=== PATIENT | male | born 1960 | race Caucasian/White ===

== ENCOUNTER 2016-11-25 16:56 | Emergency (ER) | payer OTHER ==
[~2016-11-25] VITALS: Ht 185.4 cm; Wt 118.0 kg
[~2016-11-25 16:56] MED LIST: ASPI81 PO; B COTAB3 PO; HYDR12.56; OTC POTASSIUM; OXYC-360 PO; ROSU10; TAB-TAB PO
[2016-11-25 17:00] VITALS: BP 172/99; PULSE 68; RESP 17; TEMP 98.3; O2SAT 98
[2016-11-25] MEDS ORDERED: DILT-64 PO (17:48)
[2016-11-25] MEDS ORDERED: FURO20TA PO (17:48)
[2016-11-25] MEDS ORDERED: MELO-1 PO (17:48)
[2016-11-25] MEDS ORDERED: OMEP20TA PO (17:48)
[2016-11-25] MEDS ORDERED: CYCL1TAB29 PO (17:48)
[2016-11-25] MEDS ORDERED: TRAM50TA PO (17:48)
--- NOTE | 2016-11-25 17:58 | PD ---
HPI Chief Complaint: Skin Problem Time Seen by Provider: 17:52 Travel History International Travel<30 days: No Contact w/Intl Traveler<30days: No Traveled to known affect area: No History of Present Illness HPI 56-year-old male presents to the emergency room for evaluation of a painful abscess to his lower back that has been present for the past 3 days. Patient states he has had a cyst there for 6 months and occasionally enlarges but 3 days ago it got the size of a golf ball. It began spontaneously draining last night and shrank in size but he has worsening pain. He has not taken anything or done anything for his pain. Unknown last tetanus. Denies fever, chills, nausea, and vomiting. PFSH Past Medical History Heart Rhythm Problems: Yes (HX OF A FIB) High Cholesterol: Yes Diminished Hearing: No Medical other: Yes (neuropathy) Tetanus Vaccination: < 5 Years Influenza Vaccination: No ?: Not Past Surgical History Other Surgery: Yes (VASECTOMY, LEFT FOOT SURG) Social History Alcohol Use: No Tobacco Use: Yes (3/4 PPD) Substance Use: No Allergies-Medications (Allergen,Severity, Reaction): Coded Allergies: No Known Allergies (Verified , 11/25/16) Reported Meds & Prescriptions Reported Meds & Active Scripts Active Bactrim DS (Sulfamethoxazole-Trimethoprim) 800-160 Mg Tab 1 Tab PO BID Reported Furosemide 20 Mg Tab 20 Mg PO BID Omeprazole 20 Mg Tab 20 Mg PO DAILY Diltiazem CD 24 HR 240 Mg Caper 240 Mg PO DAILY Flexeril (Cyclobenzaprine HCl) 10 Mg Tab 10 Mg PO TID Tramadol (Tramadol HCl) 50 Mg Tab 50 Mg PO Q6H PRN Meloxicam 15 Mg Tab 15 Mg PO DAILY B Complex (Vitamin B Complex) Tab 1 Cap PO DAILY Multivitamin (Multivitamins) 1 Tab Tab 1 Tab PO DAILY Review of Systems Except as stated in HPI: all other systems reviewed are Neg Physical Exam Narrative GENERAL: Well-nourished, well-developed male in no acute distress. Afebrile. Ambulatory. SKIN: Focused skin assessment warm/dry. There is an indurated area in the mid lower back which measures about 3 cm in diameter. It is fluctuant but there is no pointing or drainage. There is a zone of inflammation around it but no lymphangitis. HEAD: Normocephalic. EYES: No scleral icterus. No injection or drainage. NECK: Supple, trachea midline. No JVD or lymphadenopathy. CARDIOVASCULAR: Regular rate and rhythm without murmurs, gallops, or rubs. RESPIRATORY: Breath sounds equal bilaterally. No accessory muscle use. PSYCHIATRIC: No delusional thought processes. No hallucinations. Data Data Last Documented VS Vital Signs Date Time Temp Pulse Resp B/P Pulse Ox O2 Delivery O2 Flow Rate FiO2 11/25/16 17:00 98.3 68 17 172/99 98 Orders Lidocai-Epi 1%-1:100,000 Inj (Xylocaine- (11/25/16 18:00) Tetanus/Diphtheria Tox Adult (Tetanus/Di (11/25/16 18:00) Wound Culture And Gram Stain (11/25/16 17:51) MDM Medical Decision Making Medical Screen Exam Complete: Yes Emergency Medical Condition: Yes Medical Record Reviewed: Yes Differential Diagnosis Abscess versus cellulitis versus sebaceous cyst Narrative Course 56-year-old male presents to the emergency room for evaluation of an abscess to his lower back that started 3 days ago. It started off as a sebaceous 6 months ago and occasionally gets infected. It began spontaneously draining last night. No systemic signs of infection. Vital signs stable. Physical exam reveals a 3 cm abscess in the lower back. No lymphangitis. Mild tenderness to palpation. Abscess was drained, see procedure note for details. Patient discharged with Bactrim and told to follow up with a primary care physician or return to the emergency room for worsening symptoms. He understands and agrees to this plan. Procedures Procedure Narrative INCISION AND DRAINAGE OF ABSCESS: The area was prepped and was sterilely draped. A subcutaneous wheal of 1% lidocaine with epinephrine with a total number 2 mL was used to anesthetize the area properly. A number 11 scalpel was used to make a 1 cm incision across the area of the abscess. The abscess was drained, complex loculations were broken down, and irrigated with normal saline. Cultures were obtained. Sterile dressing applied. Diagnosis Primary Impression: Abscess of lower back Referrals: Primary Care Physician Patient Instructions: Abscess (ED), General Instructions Additional Instructions: Rest and drink plenty of fluids. Take Bactrim as directed, until gone. Follow up with a primary care physician. Return to emergency room for worsening symptoms, as discussed. Med/Other Pt SpecificInfo: Prescription(s) given Scripts Sulfamethoxazole-Trimethoprim (Bactrim DS)800-160 Mg Tab1 Tab PO BID #20 TAB Ref 0 Prov:Christina Wasserman DO 11/25/16 Disposition: 01 DISCHARGE HOME Condition: Stable Brigida Birch November 25, 2016 17:58
[2016-11-25] MEDS ORDERED: LIDOCAINE 1%/EPINEPHrine 1:100,000 SOLN 20 ML VIAL INFIL ONE (18:00)
[2016-11-25] MEDS ORDERED: TETANUS/DIPHTHERIA TOXOID ADULT 0.5 ML VIAL IM ONE (18:00)
[2016-11-25] MEDS ORDERED: BACT800T5 PO (18:22)
== END 2016-11-25 18:25 | disposition home or self-care (01) ==
LOC: PHED 16:56 → PHEFT 18:25
DX: L02.212 Cutaneous abscess of back [any part, except buttock and flank] (principal); A49.9 Bacterial infection, unspecified; I48.91 Unspecified atrial fibrillation; E78.00 Pure hypercholesterolemia, unspecified; F17.210 Nicotine dependence, cigarettes, uncomplicated; Z23 Encounter for immunization
CPT/HCPCS: 10061; 87070; 87185; 87205; 90471; 90714

== ENCOUNTER 2018-01-12 20:50 | Emergency (ER) | payer OTHER ==
[~2018-01-12] VITALS: Ht 188 cm; Wt 101.0 kg
[~2018-01-12 20:50] MED LIST changes: -ASPI81 PO; +BACT800T5 PO; +CYCL10TA PO; +DILT240C44 PO; +FURO20TA PO; -HYDR12.56; +MELO15TA20 PO; +OMEP20TA93 PO; -OTC POTASSIUM; -OXYC-360 PO; -ROSU10; +TRAM50TA PO
[2018-01-12 21:01] VITALS: BP 167/86; PULSE 65; RESP 18; TEMP 98.6; O2SAT 98
[2018-01-12] MEDS ORDERED: TETANUS/DIPHTHERIA TOXOID ADULT 0.5 ML VIAL IM ONE (21:30)
[2018-01-12] MEDS ORDERED: traMADol HCL 50 MG TAB PO ONE (21:30)
[2018-01-12] MEDS ORDERED: SULFAMETHOXAZOLE-TRIMETHOPRIM DS 800-160 MG TAB PO ONE (21:30)
[2018-01-12] MEDS ORDERED: CLINDAMYCIN PHOS 600 MG/4 ML VIAL IM ONE (21:30)
[2018-01-12] MEDS ORDERED: BACT800T5 PO (21:32)
[2018-01-12] MEDS ORDERED: CLIN150C14 PO (21:32)
[2018-01-12] MEDS ORDERED: TRAM50 PO (21:32)
--- NOTE | 2018-01-12 21:32 | PD ---
HPI Chief Complaint: Lump, Cyst, Hernia Time Seen by Provider: 21:18 Travel History International Travel<30 days: No Contact w/Intl Traveler<30days: No Traveled to known affect area: No History of Present Illness HPI 57-year-old male complains of painful lump on the right groin. Patient states that the pain started yesterday. Patient denies any injury to the area. Patient denies any fever chills. Patient states that he is not up-to-date with TD booster. Patient states the pain is sharp pain localized the right groin. Patient denies any pain radiation. Patient denies any dysuria or frequency. Patient denies any back pain. PFSH Past Medical History Heart Rhythm Problems: Yes (HX OF A FIB) High Cholesterol: Yes Diminished Hearing: No Immunizations Current: Yes Tetanus Vaccination: < 5 Years Influenza Vaccination: No Past Surgical History Other Surgery: Yes (VASECTOMY, LEFT FOOT SURG) Social History Alcohol Use: No Tobacco Use: Yes (/ PPD) Substance Use: No Allergies-Medications (Allergen,Severity, Reaction): Coded Allergies: No Known Allergies (Verified Adverse Reaction, Unknown, 01/12/18) Reported Meds & Prescriptions Reported Meds & Active Scripts Active Bactrim DS (Sulfamethoxazole-Trimethoprim) 800-160 Mg Tab 1 Tab PO BID Reported Furosemide 20 Mg Tab 20 Mg PO BID Omeprazole 20 Mg Tab 20 Mg PO DAILY Diltiazem CD 24 HR 240 Mg Caper 240 Mg PO DAILY Flexeril (Cyclobenzaprine HCl) 10 Mg Tab 10 Mg PO TID Tramadol (Tramadol HCl) 50 Mg Tab 50 Mg PO Q6H PRN Meloxicam 15 Mg Tab 15 Mg PO DAILY B Complex (Vitamin B Complex) Tab 1 Cap PO DAILY Multivitamin (Multivitamins) 1 Tab Tab 1 Tab PO DAILY Review of Systems General / Constitutional: No: Fever Eyes: No: Visual changes HENT: No: Headaches Cardiovascular: No: Chest Pain or Discomfort Respiratory: No: Shortness of Breath Gastrointestinal: No: Abdominal Pain Genitourinary: No: Dysuria Musculoskeletal: No: Pain Skin: No Rash Neurologic: No: Weakness Psychiatric: No: Depression Endocrine: No: Polydipsia Hematologic/Lymphatic: No: Easy Bruising Physical Exam Narrative GENERAL: Well-nourished, well-developed patient. SKIN: Focused skin assessment warm/dry. HEAD: Normocephalic. EYES: No scleral icterus. No injection or drainage. NECK: Supple, trachea midline. No JVD or lymphadenopathy. CARDIOVASCULAR: Regular rate and rhythm without murmurs, gallops, or rubs. RESPIRATORY: Breath sounds equal bilaterally. No accessory muscle use. GASTROINTESTINAL: Abdomen soft, non-tender, nondistended. MUSCULOSKELETAL: No cyanosis, or edema. BACK: Nontender without obvious deformity. No CVA tenderness. Patient has an area of redness swelling with small area of induration right inguinal area. No discharge noted. Data Data Last Documented VS Vital Signs Date Time Temp Pulse Resp B/P (MAP) Pulse Ox O2 Delivery O2 Flow Rate FiO2 01/12/18 21:01 98.6 65 18 167/86 (113) 98 Orders Orders Clindamycin Inj (Cleocin Inj) (01/12/18 21:30) Sulfamet-Trimeth Ds 800-160 Mg (Bactrim (01/12/18 21:30) Tramadol (Ultram) (01/12/18 21:30) [facility] Medical Decision Making Medical Screen Exam Complete: Yes Emergency Medical Condition: Yes Differential Diagnosis Differential diagnosis including cellulitis, abscess. Narrative Course 57-year-old male with pain swelling redness right inguinal area. Clindamycin 600 mg IM. Bactrim DS 1 tablet p.o. given. Ultram 50 mill grams p.o. given. Td booster given. Diagnosis Primary Impression: Abscess of right groin Patient Instructions: General Instructions Additional Instructions: Take medications as directed. Moist compress to the area. Return in 2 days for recheck. Med/Other Pt SpecificInfo: Prescription(s) given Scripts Tramadol (Ultram) 50 Mg Tab 50 MG PO Q6H Y for PAIN, #12 TAB 0 Refills Prov: Varghese Elaine MD 01/12/18 Sulfamethoxazole-Trimethoprim (Bactrim DS) 800-160 Mg Tab 1 TAB PO BID for Infection, #20 TAB 0 Refills Prov: Varghese Elaine MD 01/12/18 Clindamycin (Clindamycin) 150 Mg Cap 300 MG PO QID for Infection, #80 CAP 0 Refills Prov: Varghese Elaine MD 01/12/18 Disposition: 01 DISCHARGE HOME Condition: Stable Varghese Elaine MD Jan 12, 2018 21:32
--- NOTE | 2018-01-12 21:39 | PD ---
Physical Exam Date Seen by Provider: Jan 12, 2018 Time Seen by Provider: 21:37 Narrative Skin: Patient has a 3 x 3 cm abscess in the right groin Data Data Last Documented VS Vital Signs Date Time Temp Pulse Resp B/P (MAP) Pulse Ox O2 Delivery O2 Flow Rate FiO2 01/12/18 21:01 98.6 65 18 167/86 (113) 98 Orders Orders Clindamycin Inj (Cleocin Inj) (01/12/18 21:30) Sulfamet-Trimeth Ds 800-160 Mg (Bactrim (01/12/18 21:30) Tramadol (Ultram) (01/12/18 21:30) Tetanus/Diphtheria Tox Adult (Tetanus/Di (01/12/18 21:30) Ed Discharge Order (01/12/18 21:36) MDM Medical Record Reviewed: Yes Supervised Visit with ANJALI: Yes Differential Diagnosis MDM: High Differential diagnoses: Abscess, folliculitis, cellulitis, lymphangitis, abrasion, contact dermatitis Narrative Course An incision and drainage has been performed. Patient given clindamycin. Procedures Procedure Narrative I&D abscess: After the risks and benefits were discussed the following procedure was performed. The skin is prepped and draped in the usual sterile fashion using Hibiclens. The abscess is anesthetized with 1% lidocaine with epinephrine. After adequate anesthesia, an 11 blade scalpel is used to make a 2 centimeter central incision. Perulant material is expressed . Loculations are broken up using curved Cristy forceps. The wound is cleansed deeply using dilute Hibiclens and saline on Q-tips. The wound is packed open using iodoform gauze. A clean dressing is applied. The patient tolerated the procedure well. There was no complications. Follow-up instructions were given to the patient. Diagnosis Primary Impression: Abscess of right groin Patient Instructions: General Instructions Additional Instruction: Rest. Elevation. keep clean and dry. remove the packing in 2-3 days. Daily wound care with soap, water and Neosporin. Three Advil every 6 hours. Medications as directed Follow-up with a primary care doctor in one week. Return to the ER for any problems. Med/Other Pt SpecificInfo: Prescription(s) given, Wound Care Scripts Tramadol (Ultram) 50 Mg Tab 50 MG PO Q6H Y for PAIN, #12 TAB 0 Refills Prov: Chele,Hung MD 01/12/18 Sulfamethoxazole-Trimethoprim (Bactrim DS) 800-160 Mg Tab 1 TAB PO BID for Infection, #20 TAB 0 Refills Prov: Varghese Elaine MD 01/12/18 Clindamycin (Clindamycin) 150 Mg Cap 300 MG PO QID for Infection, #80 CAP 0 Refills Prov: Varghese Elaine MD 01/12/18 Disposition: 01 DISCHARGE HOME Condition: Stable Shan Echavarria Jan 12, 2018 21:39
== END 2018-01-12 22:07 | disposition home or self-care (01) ==
LOC: NEPD 20:50
DX: L02.214 Cutaneous abscess of groin (principal); Z23 Encounter for immunization; I48.91 Unspecified atrial fibrillation; E78.00 Pure hypercholesterolemia, unspecified; F17.200 Nicotine dependence, unspecified, uncomplicated
CPT/HCPCS: 10060; 90471; 90714; 96372

== ENCOUNTER 2018-06-24 08:58 | Observation (INO) ==
[2018-06-24] MEDS ORDERED: Morphine Inj 4 MG/ML Vial IV.PUSH ONE ×2 (09:10→10:53)
--- NOTE | 2018-06-24 09:25 | ED ---
HPI General Chief complaint: Chest Pain Stated complaint: chest pain Time Seen by Provider: 06/24/18 09:07 History of Present Illness HPI narrative: 58-year-old male with past medical history of A. fib not on anticoagulation or rate control presents to the ED today for substernal chest pain radiating to the left arm and neck for 3 hours. Patient denies any shortness of breath, nausea, vomiting, diaphoresis, or syncope. Patient was under significant stress at work when pain began. His coworker gave him a baby aspirin on onset of pain. Patient denies any recent illness trauma or travel. Patient denies any previous episodes. Patient reports family history of cardiac disease mother. Patient smokes half pack a day and drinks socially. Related Data Home Medications Medication Instructions Recorded Confirmed aspirin [Aspir-81] 81 mg PO DAILY 06/24/18 06/24/18 bupropion HCl 150 mg PO QAM 06/24/18 06/24/18 omeprazole 20 mg PO DAILY 06/24/18 06/24/18 Allergies Allergy/AdvReac Type Severity Reaction Status Date / Time No Known Allergies AdvReac Unknown Uncoded 01/15/18 20:44 Review of Systems Constitutional Denies chills and Denies fever(s) ENT Denies headache(s) and Reports neck pain Cardiovascular Reports chest pain, Denies syncope, Reports radiating jaw, neck or arm pain, Denies palpitations and Denies dyspnea Respiratory Denies cough, Denies dyspnea and Denies wheezing Gastrointestinal Denies diarrhea, Denies nausea and Denies vomiting Genitourinary Denies urinary frequency and Denies urinary urgency Musculoskeletal Reports neck pain and Reports radiating pain into limb Integumentary/Breasts Denies rash Neurologic Denies dizziness, Denies syncope, Denies numbness and Reports tingling PMFSH Medical History Medical History Afib (Acute) Chronic back pain (Acute) Surgical History Surgical History H/O vasectomy (Acute) Social History Social History Substance History: No History of Abuse Second Hand Smoke Exposure: Yes Smoking Status: Current every day smoker Tobacco Type: Cigarettes How Often Do You Have a Drink Containing Alcohol: 2 to 3 times a week Recent Travel in [facility] within the Last 8 Weeks: No Recent Out of Country Travel within the Last 8 Weeks: No Immunization History Tetanus Immunization: Unsure Exam Narrative Exam Narrative: GENERAL: Uncomfortable male in no acute distress SKIN: Focused skin assessment warm/dry. HEAD: Atraumatic. Normocephalic. EYES: Pupils equal and round. No scleral icterus. No injection or drainage. ENT: No nasal bleeding or discharge. Mucous membranes pink and moist. NECK: Trachea midline. No JVD. CARDIOVASCULAR: Regular rate and rhythm. No murmur appreciated. RESPIRATORY: Mildly tachypneic on exam but no accessory muscle use or respiratory distress. Lungs clear to auscultation bilaterally GASTROINTESTINAL: Abdomen soft, non-tender, nondistended. Hepatic and splenic margins not palpable. MUSCULOSKELETAL: No obvious deformities. No clubbing. No cyanosis. No edema. NEUROLOGICAL: Awake and alert. No obvious cranial nerve deficits. Motor grossly within normal limits. Normal speech. PSYCHIATRIC: Appropriate mood and affect; insight and judgment normal. Course Initial Documented Vital Signs Temperature 97.7 F 06/24/18 09:00 Pulse Rate 65 06/24/18 09:00 Respiratory Rate 20 06/24/18 09:00 Blood Pressure 191/96 H 06/24/18 09:00 Pulse Oximetry 98 06/24/18 09:00 Last Documented Vital Signs Temperature 98.3 F 06/24/18 09:22 Pulse Rate 48 L 06/24/18 12:03 Respiratory Rate 18 06/24/18 12:03 Blood Pressure 169/88 H 06/24/18 12:03 Pulse Oximetry 99 06/24/18 12:03 Medical Decision Making [facility] Narrative Medical decision making narrative: 58-year-old male presented to the ED with chest pain radiating to left arm and neck for 3 hours. Patient was under significant stress at work when pain began and was given a baby aspirin by a coworker. Patient denies any shortness of breath, nausea, diaphoresis, vomiting , palpitations, or syncope. Patient had positive family history of cardiac disease and smokes half pack a day. He denies any previous episodes. Vital signs revealed blood pressure 194/92 on exam patient was mild discomfort but no acute distress mildly tachypneic. Cardiopulmonary exam was unremarkable. Morphine was given for pain as well as aspirin chew. Chest pain workup was started with EKG, chest x-ray, troponin, CK-MB, CBC, CMP, urine tox, lipase, coag studies. Lab interpretation by ulisses Ballard: Negative tox screen negative alcohol Coagulation profile within normal limits CBC within normal limits without leukocytosis anemia or abnormal platelet count , no evidence of any left shift Electrolytes within normal limits Normal kidney liver and pancreatic functions First set of cardiac enzymes negative CTA thorax revealed no acute arterial changes Patient is still symptomatic with back and chest pain overall discomfort. Due to this and cardiac risk factors patient will be admitted to observation. Lab Data Result diagrams: 06/24/18 09:15 06/24/18 09:15 Lab Results 06/24/18 06/24/18 06/24/18 Range/Units 09:15 09:15 09:15 WBC 9.4 (4.0-11.0) th/mm3 RBC 4.13 L (4.50-5.90) mil/mm3 Hgb 14.3 (13.0-17.0) gm/dL Hct 40.3 (39.0-51.0) % MCV 97.7 (80.0-100.0) fL MCH 34.6 H (27.0-34.0) pg MCHC 35.4 (32.0-36.0) % RDW 14.3 (11.6-17.2) % Plt Count 243 (150-450) th/mm3 MPV 7.5 (7.0-11.0) fL Neut % (Auto) 70.5 H (16.0-70.0) % Lymph % (Auto) 21.9 (9.0-44.0) % Smyth % (Auto) 5.3 (0.0-8.0) % Eos % (Auto) 1.3 (0.0-4.0) % Baso % (Auto) 1.0 (0.0-2.0) % Neut # (Auto) 6.6 (1.8-7.7) th/mm3 Lymph # (Auto) 2.1 (1.0-4.8) th/mm3 Smyth # (Auto) 0.5 (0.0-0.9) th/mm3 Eos # (Auto) 0.1 (0.0-0.4) th/mm3 Baso # (Auto) 0.1 (0.0-0.2) th/mm3 WBC Differential . Differential Comment Auto diff final PT (9.8-11.6) sec INR Ratio APTT (23.4-31.7) sec Sodium 138 (136-145) meq/L Potassium 3.5 (3.5-5.1) meq/L Chloride 108 H (98-107) meq/L Carbon Dioxide 23.2 (21.0-32.0) meq/L Anion Gap 7 (5-15) meq/L BUN 17 (7-18) mg/dL Creatinine 0.74 (0.60-1.30) mg/dL Estimated GFR Greater than 89 (>89) mL/min Random Glucose 97 (74-106) mg/dL Calcium 8.8 (8.5-10.1) mg/dL Total Bilirubin 0.5 (0.2-1.0) mg/dL AST 14 L (15-37) U/L ALT 23 (12-78) U/L Alkaline Phosphatase 82 (45-117) U/L Total Creatine Kinase 226 (39-308) U/L CK-MB (CK-2) 2.3 (0.5-3.6) ng/mL Troponin I Less than 0.02 L (0.02-0.05) ng/mL B-Natriuretic Peptide 22 (0-100) pg/mL Total Protein 7.1 (6.4-8.2) g/dL Albumin 3.8 (3.4-5.0) g/dL Lipase 75 (73-393) U/L Urine Opiates Screen (Neg) Ur Barbiturates Screen (Neg) Ur Amphetamines Screen (Neg) U Benzodiazepines Scrn (Neg) Urine Cocaine Screen (Neg) U Cannabinoids Screen (Neg) Serum Alcohol Less than 3 (0-5) mg/dL 06/24/18 06/24/18 Range/Units 09:15 09:22 WBC (4.0-11.0) th/mm3 RBC (4.50-5.90) mil/mm3 Hgb (13.0-17.0) gm/dL Hct (39.0-51.0) % MCV (80.0-100.0) fL MCH (27.0-34.0) pg MCHC (32.0-36.0) % RDW (11.6-17.2) % Plt Count (150-450) th/mm3 MPV (7.0-11.0) fL Neut % (Auto) (16.0-70.0) % Lymph % (Auto) (9.0-44.0) % Smyth % (Auto) (0.0-8.0) % Eos % (Auto) (0.0-4.0) % Baso % (Auto) (0.0-2.0) % Neut # (Auto) (1.8-7.7) th/mm3 Lymph # (Auto) (1.0-4.8) th/mm3 Smyth # (Auto) (0.0-0.9) th/mm3 Eos # (Auto) (0.0-0.4) th/mm3 Baso # (Auto) (0.0-0.2) th/mm3 WBC Differential Differential Comment PT 10.0 (9.8-11.6) sec INR 1.0 Ratio APTT 26.4 (23.4-31.7) sec Sodium (136-145) meq/L Potassium (3.5-5.1) meq/L Chloride (98-107) meq/L Carbon Dioxide (21.0-32.0) meq/L Anion Gap (5-15) meq/L BUN (7-18) mg/dL Creatinine (0.60-1.30) mg/dL Estimated GFR (>89) mL/min Random Glucose (74-106) mg/dL Calcium (8.5-10.1) mg/dL Total Bilirubin (0.2-1.0) mg/dL AST (15-37) U/L ALT (12-78) U/L Alkaline Phosphatase (45-117) U/L Total Creatine Kinase (39-308) U/L CK-MB (CK-2) (0.5-3.6) ng/mL Troponin I (0.02-0.05) ng/mL B-Natriuretic Peptide (0-100) pg/mL Total Protein (6.4-8.2) g/dL Albumin (3.4-5.0) g/dL Lipase (73-393) U/L Urine Opiates Screen Neg (Neg) Ur Barbiturates Screen Neg (Neg) Ur Amphetamines Screen Neg (Neg) U Benzodiazepines Scrn Neg (Neg) Urine Cocaine Screen Neg (Neg) U Cannabinoids Screen Neg (Neg) Serum Alcohol (0-5) mg/dL Imaging Data Radiologist's impression: Chest X-Ray 06/24/18 09:10 CONCLUSION: No acute cardiopulmonary process. Suspected chronic change at the right acromioclavicular joint. Thoracic Aorta CT 06/24/18 10:25 CONCLUSION: 1. The arterial structures appear grossly normal. 2. 3 focal liver lesions. The liver lesions at the dome of the liver and the lateral segment the left lobe liver likely represent cysts or hemangiomas. The exophytic mass seen posterior to the liver appears higher in density. This is nonspecific. These could be further evaluated with an MRI examination using a liver protocol at some point. This could be performed as an outpatient. 3. Scattered colonic diverticula without inflammatory change. ECG Data EKG Prior to Arrival: No Attestation: I personally reviewed and interpreted this ECG as follows: Prior ECG tracings: not available for review Interpretation: Normal sinus rhythm, 63 bpm, normal intervals, no acute evidence of any ST elevation CO pattern. Discharge Plan Discharge Disposition Patient Disposition: ED Admit(ED Internal Use Only) Discharge Condition Condition: Stable Discharge Order Discharge Orders: ED Use Only Admit Order (Routine); Ordered 06/24/18 Ordered By: Juan Miguel Ballard Discharge Details Diagnosis: Chest pain, rule out acute myocardial infarction Physicians Team ED Provider: Juan Miguel Ballard Primary Care Provider: [facility],Physician 's Attending Provider: Sonja Jernigna Discharge Interventions Interventions: Vital Signs Last Done: 06/24/18 09:01 Status ED Status: Admitted Observation Patient
[2018-06-24 09:30] LABS: Baso # (Auto) 0.1 th/mm3 (0.0-0.2); Eos # (Auto) 0.1 th/mm3 (0.0-0.4); Eos % (Auto) 1.3 % (0.0-4.0); Hematocrit 40.3 % (39.0-51.0); Hemoglobin 14.3 gm/dL (13.0-17.0); Lymph # (Auto) 2.1 th/mm3 (1.0-4.8); Lymph % (Auto) 21.9 % (9.0-44.0); Mean Corpuscular HGB Conc 35.4 % (32.0-36.0); Mean Corpuscular Hemoglobin 34.6 pg (27.0-34.0); Mean Corpuscular Volume 97.7 fL (80.0-100.0); Mean Platelet Volume 7.5 fL (7.0-11.0); Mono # (Auto) 0.5 th/mm3 (0.0-0.9); Mono % (Auto) 5.3 % (0.0-8.0); Neut # (Auto) 6.6 th/mm3 (1.8-7.7); Neut % (Auto) 70.5 % (16.0-70.0); Platelet Count 243 th/mm3 (150-450); Red Blood Count 4.13 mil/mm3 (4.50-5.90); Red Cell Distribution Width 14.3 % (11.6-17.2); White Blood Count 9.4 th/mm3 (4.0-11.0)
[2018-06-24 09:36] LABS: Activated Partial Thrombo Time 26.4 sec (23.4-31.7)
[2018-06-24 09:42] LABS: Alanine Aminotransferase 23 U/L (12-78); Albumin 3.8 g/dL (3.4-5.0); Anion Gap 7 meq/L (5-15); Aspartate Aminotransferase 14 U/L (15-37); Blood Urea Nitrogen 17 mg/dL (7-18); Calcium 8.8 mg/dL (8.5-10.1); Carbon Dioxide 23.2 meq/L (21.0-32.0); Chloride 108 meq/L (98-107); Glomerular Filtration Rate Greater Than 89 mL/min (>89); Glucose,Random 97 mg/dL (74-106); Lipase 75 U/L (73-393); Potassium 3.5 meq/L (3.5-5.1); Sodium 138 meq/L (136-145)
[2018-06-24 09:43] LABS: Amphetamine Screen,Urine Neg (Neg); Barbiturate Screen,Urine Neg (Neg); Cannabinoid Screen,Urine Neg (Neg); Cocaine Screen,Urine Neg (Neg)
[2018-06-24 09:46] LABS: Alkaline Phosphatase 82 U/L (45-117); Creatine Kinase 226 U/L (39-308); Total Protein 7.1 g/dL (6.4-8.2)
[2018-06-24 09:54] LABS: Opiate Screen,Urine Neg (Neg)
--- NOTE | 2018-06-24 10:04 | XR ---
EXAM DATE: 06/24/2018 9:56 AM EST AGE/SEX: 58 years / Male INDICATIONS: Chest pain. CLINICAL DATA: This is the patient's initial encounter. Patient reports that signs and symptoms have been present for 1 day and indicates a pain score of 7/10. MEDICAL/SURGICAL HISTORY: None. None. COMPARISON: No prior exams available for comparison. FINDINGS: The heart size is normal. The lungs are grossly clear. No effusion is seen. There is grade 3 acromioc lavicular separation on the right with some hypertrophic change suggesting these changes are chronic. CONCLUSION: No acute cardiopulmonary process. Suspected chronic change at the right acromioclavicular joint. Electronically signed by: Swapnil Fong MD 06/24/2018 10:03 AM EST
[2018-06-24 10:10] LABS: Creatine Kinase MB 2.3 ng/mL (0.5-3.6)
[2018-06-24] MEDS ORDERED: hydrALAZINE HCl Inj 20 MG/ML Vial IV.PUSH ONE (10:14)
--- NOTE | 2018-06-24 12:49 | CT ---
EXAM DATE: 06/24/2018 12:14 PM EST AGE/SEX: 58 years / Male INDICATIONS: Left side chest pain with left arm numbness. CLINICAL DATA: This is the patient's initial encounter. Patient reports that signs and symptoms have been present for 1 day and indicates a pain score of 8/10. MEDICAL/SURGICAL HISTORY: Cardiovascular disease. None. RADIATION DOSE: 10.57 CTDI (mGy) COMPARISON: No prior exams available for comparison. TECHNIQUE: Volumetric scanning was performed using a multi-row detector CT scanner during bolus infu chavo of 98 ml Omnipaque 350 (iohexol) nonionic water-soluble contrast as a single exam dose. The da ta was post processed with a variety of visualization algorithms including full volume maximum intens ity projection, multi-planar sliding thin slab reformation, curved planar reformation, and surface re ndering techniques. Using automated exposure control and adjustment of the mA and/or kV according to patient size, radiation dose was kept as low as reasonably achievable to obtain optimal diagnostic q uality images. DICOM format image data is available electronically for review and comparison. FINDINGS: Lungs: There is increased density at the posterior lower lobes bilaterally likely related to atelect asis or mild consolidation. Mediastinum: No abnormally enlarged lymph nodes by CT criteria. No axillary or hilar abnormalities a re identified. Abdomen: There are at least 3 liver lesions including a 3.4 cm exophytic mass off the posterior aspe ct of the right lobe, a 2.1 cm low-density mass at the superior aspect of the liver and a 2 cm low-de nsity mass at the anterior aspect of the lateral segment of the left lobe of the liver. The spleen, p ancreas, adrenal glands and kidneys appear normal. There are scattered colonic diverticula without in flammatory change. There is degenerative change in the lumbar spine. Pelvis: No evidence of free fluid or pelvic mass. No abnormally enlarged inguinal or retroperitoneal lymph nodes are present. The bladder is unremarkable. There is fluid within the right inguinal canal . Thoracic Aorta: The thoracic aortic root is normal with normal branching of the great vessels. Ther e is no evidence of aneurysm or dissection. Abdominal Aorta: The aorta is normal in caliber without aneurysm or dissection. The renal arteries are patent bilaterally. There are accessory renal arteries seen on the left. The proximal celiac and superior mesenteric arteries are patent and normal in diameter. Pelvic Vessels: The internal iliac and external iliac vessels are patent without aneurysm or stenosi s. CONCLUSION: 1. The arterial structures appear grossly normal. 2. 3 focal liver lesions. The liver lesions at the dome of the liver and the lateral segment the lef t lobe liver likely represent cysts or hemangiomas. The exophytic mass seen posterior to the liver ap pears higher in density. This is nonspecific. These could be further evaluated with an MRI examinatio n using a liver protocol at some point. This could be performed as an outpatient. 3. Scattered colonic diverticula without inflammatory change. Electronically signed by: Swapnil Fong MD 06/24/2018 12:48 PM EST
[2018-06-24] MEDS ORDERED: ALPRAZolam 0.25 MG Tablet PO PRN (13:06)
[2018-06-24] MEDS ORDERED: Acetaminophen 500 MG Tablet PO PRN (13:39)
--- NOTE | 2018-06-24 14:21 | P.HPCA ---
History of Present Illness Primary Care Physician: Physician [facility] Chief Complaint: Chest pain History of Present Illness: This is a 58-year-old male with history of hypertension, hyperlipidemia that he states has been diet controlled, paroxysmal atrial fibrillation that was diagnosed in 1996 and takes diltiazem for and states he has had no recurrence or a few years of A. fib that presents to ED to be evaluated for chest discomfort. States the discomfort began around 6:00 this morning while he was at home. Initially describes as a sharp discomfort that turned into it elephant sitting on his chest. Worse level is a 10 out of 10. He found nothing to worsen it or improved but believes this started to lighten up after getting some aspirin while at work. He did go to work but was doing nothing strenuous and as the discomfort would not go away he decided to come to the ED. He was short of breath with it. No nausea or diaphoresis. The discomfort did not radiate. Still there at this time but decreased at about a 3 out of 10. Voices compliance with medication. States he follows up at the [facility]. Patient has history of paroxysmal atrial fibrillation and states has been a few years since his last episode of A. fib. Hypertension. Hyperlipidemia however he states has been diet controlled and chronic back pain. Tobacco abuse. Denies diabetes and known CAD. He states that his mother had onset CAD in her late 60s early 70s. Patient smokes currently about 1/2 pack a day for the past year but was smoking on average 1/2 pack of cigarettes daily for 30 years. Rarely has alcohol. Denies illicit drug use. - Diagnosis (1) Chest pain (2) Hypertension (3) Hyperlipidemia (4) Paroxysmal atrial fibrillation (5) Tobacco abuse Review of Systems General: Patient denies fevers, chills, and recent travel. HEENT: Patient denies headache, sore throat, difficulty swallowing. Cardiovascular: Has the chest discomfort as mentioned above. Denies sensation of heart beating rapidly or irregularly. No syncope. Denies diaphoresis. Respiratory: He was short of breath. Denies inspirational chest discomfort. Denies coughing wheezing or hemoptysis. GI: Patient denies nausea, vomiting, diarrhea, abdominal pain, bloody stools. Musculoskeletal: Patient denies joint pain or edema. Denies calf pain or edema. Neurovascular: Patient denies numbness, tingling, weakness in extremities. Denies headache. Endocrine: Denies polyuria and polydipsia. Hematologic: Denies easy bruising. Skin: Denies rash or itching. PMFSH - History History Provided By: Patient - Medical History Medical History: Medical History (Last Updated 06/24/18 @ 09:01 by Sharon Melgar) Afib Chronic back pain - Surgical History Surgical History: Surgical History (Last Updated 06/24/18 @ 09:01 by Sharon Melgar) H/O vasectomy - Tobacco History Second Hand Smoke Exposure: Yes Tobacco Use In Past 30 Days: Yes Smoking Status: Current every day smoker Tobacco Type: Cigarettes - Alcohol History How Often Do You Have a Drink Containing Alcohol: 2 to 3 times a week - Substance Use History Substance History: No History of Abuse - Travel History Recent Travel in the [place] Within the Last 8 Weeks: No Recent Travel Out of the Country Within the Last 8 Weeks: No - Immunization History Tetanus Immunization: Unsure Medications and Allergies Active Medications: Active Medications Acetaminophen (Tylenol) 500 mg PO Q6H PRN PRN Reason: pain scale 1-5 Hydrocodone Bitart/Acetaminophen ([place] 7.5/325) 1 tab PO Q6H PRN PRN Reason: pain scale 6-10 Last Admin: 06/24/18 13:51 Dose: 1 tab Albuterol (Duoneb Neb (Prn)) 1 ampul NEB Q4HR NEB PRN PRN Reason: SHORTNESS OF BREATH/WHEEZING Alprazolam (Xanax) 0.25 mg PO Q8H PRN PRN Reason: ANXIETY Aspirin (Aspirin) 325 mg PO DAILY ANTHONY Clonidine HCl (Catapres) 0.1 mg PO Q6H PRN PRN Reason: SBP >165 OR DBP > 110 Sodium Chloride (Ns Flush) 2 ml IV.FLUSH UNSCH PRN PRN Reason: FLUSH AFTER USING IV ACCESS Sodium Chloride (Ns Flush) 2 ml IV.FLUSH BID ANTHONY Sodium Chloride (Ns Flush) 2 ml IV.FLUSH PRN PRN PRN Reason: FLUSH AFTER USING IV ACCESS Allergies Allergy/AdvReac Type Severity Reaction Status Date / Time No Known Allergies AdvReac Unknown Uncoded 01/15/18 20:44 Home Medications Medication Instructions Recorded Confirmed Type aspirin [Aspir-81] 81 mg PO DAILY 06/24/18 06/24/18 History bupropion HCl 150 mg PO QAM 06/24/18 06/24/18 History diltiazem HCl [Cardizem CD] 240 mg PO DAILY 06/24/18 06/24/18 History omeprazole 20 mg PO DAILY 06/24/18 06/24/18 History Exam Vital signs: Vital Signs 06/24/18 09:00 06/24/18 09:01 06/24/18 09:22 Temperature 97.7 F 98.3 F Pulse Rate 65 61 60 Respiratory Rate 20 18 Blood Pressure 191/96 H 194/92 H 194/92 H Pulse Oximetry 98 98 98 06/24/18 10:12 06/24/18 11:00 06/24/18 11:19 Temperature Pulse Rate 54 L Respiratory Rate 18 18 20 Blood Pressure 168/83 H Pulse Oximetry 100 06/24/18 12:03 Temperature Pulse Rate 48 L Respiratory Rate 18 Blood Pressure 169/88 H Pulse Oximetry 99 Intake & Output 06/23/18 06/24/18 06/24/18 18:59 06:59 18:59 Weight 108.862 kg Narrative: GENERAL: This is a well-nourished, well-developed patient, in no apparent distress. Patient speaks in clear complete sentences. Patient is pleasant. HEENT: Head is atraumatic and normocephalic. Neck is supple without lymphadenopathy and trachea is midline. No JVD or carotid bruits. CARDIOVASCULAR: Regular rate and rhythm without murmurs, gallops, or rubs. RESPIRATORY: Clear to auscultation. Breath sounds equal bilaterally. No wheezes , rales, or rhonchi. Chest wall is nontender. No use of accessory muscles. GASTROINTESTINAL: Abdomen is nontender, nondistended. Abdomen soft. No obvious pulsatile mass or bruit. No CVA tenderness. Strong femoral pulses bilaterally. Normal bowel sounds in all quadrants. MUSCULOSKELETAL: Patient is moving upper and lower extremities freely. No calf tenderness or edema, no Homans sign. Strong pulses in upper and lower extremities. NEUROLOGICAL: Patient is alert and oriented. Cranial nerves 2-12 are grossly intact. No focal deficits and speech is clear. SKIN: No rash and turgor is normal. Results 06/24/18 09:15 06/24/18 09:15 Cardiac Enzymes 06/24/18 06/24/18 Range/Units 09:15 09:15 AST 14 L (15-37) U/L CK-MB (CK-2) 2.3 (0.5-3.6) ng/mL Troponin I Less than 0.02 L (0.02-0.05) ng/mL B-Natriuretic Peptide 22 (0-100) pg/mL Coagulation 18 06/24/18 Range/Units 09:15 09:15 PT 10.0 (9.8-11.6) sec APTT 26.4 (23.4-31.7) sec B-Natriuretic Peptide 22 (0-100) pg/mL CBC 06/24/18 Range/Units 09:15 WBC 9.4 (4.0-11.0) th/mm3 RBC 4.13 L (4.50-5.90) mil/mm3 Hgb 14.3 (13.0-17.0) gm/dL Hct 40.3 (39.0-51.0) % Plt Count 243 (150-450) th/mm3 Neut # (Auto) 6.6 (1.8-7.7) th/mm3 Lymph # (Auto) 2.1 (1.0-4.8) th/mm3 [place] # (Auto) 0.5 (0.0-0.9) th/mm3 Eos # (Auto) 0.1 (0.0-0.4) th/mm3 Baso # (Auto) 0.1 (0.0-0.2) th/mm3 Comprehensive Metabolic Panel 06/24/18 Range/Units 09:15 Sodium 138 (136-145) meq/L Potassium 3.5 (3.5-5.1) meq/L Chloride 108 H (98-107) meq/L Carbon Dioxide 23.2 (21.0-32.0) meq/L BUN 17 (7-18) mg/dL Creatinine 0.74 (0.60-1.30) mg/dL Calcium 8.8 (8.5-10.1) mg/dL AST 14 L (15-37) U/L ALT 23 (12-78) U/L Alkaline Phosphatase 82 (45-117) U/L Total Protein 7.1 (6.4-8.2) g/dL Albumin 3.8 (3.4-5.0) g/dL Intake and Output 06/23/18 06/24/18 06/24/18 22:59 06:59 14:59 Other: Weight 108.862 kg Patient Weight 06/25/18 06:59 Weight 108.862 kg - Imaging and Cardiology Imaging: Impressions Chest X-Ray 06/24/18 09:10 CONCLUSION: No acute cardiopulmonary process. Suspected chronic change at the right acromioclavicular joint. Thoracic Aorta CT 06/24/18 10:25 CONCLUSION: 1. The arterial structures appear grossly normal. 2. 3 focal liver lesions. The liver lesions at the dome of the liver and the lateral segment the left lobe liver likely represent cysts or hemangiomas. The exophytic mass seen posterior to the liver appears higher in density. This is nonspecific. These could be further evaluated with an MRI examination using a liver protocol at some point. This could be performed as an outpatient. 3. Scattered colonic diverticula without inflammatory change. EKG interpretations - EKG EKG shows: sinus rhythm (Initial EKG is sinus rhythm rate of [address] segment depressions or elevations.) Caprini VTE Risk Assessment Caprini VTE Risk Assessment: No/Low Risk (score <= 1) Caprini Risk Assessment Model: Point Value = 1 Point Value = 2 Point Value = 3 Point Value = 5 Age 41-60 Minor surgery BMI > 25 kg/m2 Swollen legs Varicose veins or History of unexplained or recurrent spontaneous Oral contraceptives or hormone replacement Sepsis (< 1 month) Serious lung disease, including pneumonia (< 1 month) Abnormal pulmonary function Acute myocardial infarction Congestive heart failure (< 1 month) History of inflammatory bowel disease Medical patient at bed rest Age 61-74 Arthroscopic surgery Major open surgery (> 45 min) Laparoscopic surgery (> 45 min) Malignancy Confined to bed (> 72 hours) Immobilizing plaster cast Central venous access Age >= 75 History of VTE Family history of VTE Factor V Leiden Prothrombin [id number] Lupus anticoagulant Anticardiolipin antibodies Elevated serum homocysteine Heparin-induced thrombocytopenia Other congenital or acquired thrombophilia Stroke (< 1 month) Elective arthroplasty Hip, pelvis, or leg fracture Acute spinal cord injury (< 1 month) Prophylaxis Regimen: Total Risk Factor Score Risk Level Prophylaxis Regimen 0-1 Low Early ambulation 2 Moderate Order ONE of the following: *Sequential Compression Device (SCD) *Heparin 5000 units SQ BID 3-4 Higher Order ONE of the following medications: *Heparin 5000 units SQ TID *Enoxaparin/Lovenox 40 mg SQ daily (WT < 150 kg, CrCl > 30 mL/min) *Enoxaparin/Lovenox 30 mg SQ daily (WT < 150 kg, CrCl > 10-29 mL/min) *Enoxaparin/Lovenox 30 mg SQ BID (WT < 150 kg, CrCl > 30 mL/min) AND/OR *Sequential Compression Device (SCD) 5 or more Highest Order ONE of the following medications: *Heparin 5000 units SQ TID (Preferred with Epidurals) *Enoxaparin/Lovenox 40 mg SQ daily (WT < 150 kg, CrCl > 30 mL/min) *Enoxaparin/Lovenox 30 mg SQ daily (WT < 150 kg, CrCl > 10-29 mL/min) *Enoxaparin/Lovenox 30 mg SQ BID (WT < 150 kg, CrCl > 30 mL/min) AND *Sequential Compression Device (SCD) Assessment and Plan - Assessment (1) Chest pain Code(s): R07.9 - Chest pain, unspecified Status: Acute (2) Hypertension Code(s): I10 - Essential (primary) hypertension Status: Acute (3) Hyperlipidemia Code(s): E78.5 - Hyperlipidemia, unspecified Status: Acute (4) Paroxysmal atrial fibrillation Code(s): I48.0 - Paroxysmal atrial fibrillation Status: Acute (5) Tobacco abuse Code(s): Z72.0 - Tobacco use Status: Acute - Plan * Chest pain: Patient will continue to have serial cardiac enzymes and EKGs for ruling out purposes. He will be seen by Dr. Jernigan of cardiology and the chest pain center and at that time further plan will be determined. * Paroxysmal atrial fibrillation: Patient is in sinus rhythm at this time. He was denying palpitations with the symptoms today. He will need further follow- up with his physician. Continue medication. * Hyperlipidemia: Patient states he has been diet controlled. Cannot recall ever being on medication. He will need to have this followed up with his physician at the [facility]. * Tobacco abuse: Patient counseled on importance of smoking cessation. * Hypertension: Continue medication. Patient is stable at this time. He is agreeable to this plan.
[2018-06-24 14:58] LABS: Creatine Kinase 197 U/L (39-308)
--- NOTE | 2018-06-24 17:06 | ECG ---
Date Performed: 06/24/2018 Time Performed: 09:10:16 PTAGE: 58 years EKG: Sinus rhythm MODERATE INTRAVENTRICULAR CONDUCTION DELAY BORDERLINE ECG Since PREVIOUS TRACING , no significant change noted PREVIOUS TRACIN03/16/1994 10.38 DOCTOR: Sonja Jernigan Interpretating Date/Time 06/24/2018 17:05:13
[2018-06-24 17:16] LABS: Creatine Kinase 182 U/L (39-308)
--- NOTE | 2018-06-25 08:41 | P.PNCA ---
Subjective Interval history: Offers no complaints. No further chest pain overnight. Medications and Allergies Active Medications: Active Medications Acetaminophen (Tylenol) 500 mg PO Q6H PRN PRN Reason: pain scale 1-5 Hydrocodone Bitart/Acetaminophen ([place] 7.5/325) 1 tab PO Q6H PRN PRN Reason: pain scale 6-10 Last Admin: 06/24/18 19:34 Dose: 1 tab Albuterol (Duoneb Neb (Prn)) 1 ampul NEB Q4HR NEB PRN PRN Reason: SHORTNESS OF BREATH/WHEEZING Alprazolam (Xanax) 0.25 mg PO Q8H PRN PRN Reason: ANXIETY Aspirin (Aspirin) 325 mg PO DAILY ANTHONY Clonidine HCl (Catapres) 0.1 mg PO Q6H PRN PRN Reason: SBP >165 OR DBP > 110 Sodium Chloride (Ns Flush) 2 ml IV.FLUSH UNSCH PRN PRN Reason: FLUSH AFTER USING IV ACCESS Sodium Chloride (Ns Flush) 2 ml IV.FLUSH BID ANTHONY Last Admin: 06/24/18 20:19 Dose: Not Given Sodium Chloride (Ns Flush) 2 ml IV.FLUSH PRN PRN PRN Reason: FLUSH AFTER USING IV ACCESS Allergies Allergy/AdvReac Type Severity Reaction Status Date / Time No Known Allergies AdvReac Unknown Uncoded 01/15/18 20:44 Home Medications Medication Instructions Recorded Confirmed Type aspirin [Aspir-81] 81 mg PO DAILY 06/24/18 06/24/18 History bupropion HCl 150 mg PO QAM 06/24/18 06/24/18 History diltiazem HCl [Cardizem CD] 240 mg PO DAILY 06/24/18 06/24/18 History omeprazole 20 mg PO DAILY 06/24/18 06/24/18 History Physical Exam Vital signs: Vital Signs 06/24/18 09:00 06/24/18 09:01 06/24/18 09:22 Temperature 97.7 F 98.3 F Pulse Rate 65 61 60 Respiratory Rate 20 18 Blood Pressure 191/96 H 194/92 H 194/92 H Pulse Oximetry 98 98 98 06/24/18 10:12 06/24/18 11:00 06/24/18 11:19 Temperature Pulse Rate 54 L Respiratory Rate 18 18 20 Blood Pressure 168/83 H Pulse Oximetry 100 06/24/18 12:03 06/24/18 15:10 06/24/18 17:32 Temperature 97.7 F Pulse Rate 48 L 47 L 49 L Respiratory Rate 18 18 16 Blood Pressure 169/88 H 143/92 H 144/85 H Pulse Oximetry 99 98 06/24/18 20:00 06/25/18 00:00 06/25/18 04:00 Temperature 98.3 F 97.6 F 98.4 F Pulse Rate 52 L 56 L 53 L Respiratory Rate 18 20 18 Blood Pressure 140/79 124/77 147/80 H Pulse Oximetry 96 100 95 Intake & Output 06/24/18 06/25/18 06/25/18 18:59 06:59 18:59 Intake Total 220 / 220 Balance 220 / 220 Weight 108.862 kg Intake: Oral 220 / 220 Other: Date of Last Bowel Movement 06/24/18 Weight On Admission 108.862 kg Narrative: Obese, male in no acute distress laying in bed watching TV. - Constitutional no acute distress - Routine Respiratory Exam Present: CTA bilaterally. Absent: rhonchi, wheezes, crackles - Routine Cardiovascular Exam Present: RRR. Absent: murmur, gallop, rubs - Routine Abdominal Exam Present: soft, normoactive bowel sounds. Absent: distended, firm, rigid Results 06/24/18 09:15 06/24/18 09:15 Cardiac Enzymes 06/24/18 06/24/18 06/24/18 Range/Units 09:15 09:15 13:35 AST 14 L (15-37) U/L CK-MB (CK-2) 2.3 (0.5-3.6) ng/mL Troponin I Less than 0.02 L Less than 0.02 L (0.02-0.05) ng/mL B-Natriuretic Peptide 22 (0-100) pg/mL 06/24/18 Range/Units 14:15 AST (15-37) U/L CK-MB (CK-2) (0.5-3.6) ng/mL Troponin I Less than 0.02 L (0.02-0.05) ng/mL B-Natriuretic Peptide (0-100) pg/mL Coagulation 06/24/18 06/24/18 Range/Units 09:15 09:15 PT 10.0 (9.8-11.6) sec APTT 26.4 (23.4-31.7) sec B-Natriuretic Peptide 22 (0-100) pg/mL CBC 06/24/18 Range/Units 09:15 WBC 9.4 (4.0-11.0) th/mm3 RBC 4.13 L (4.50-5.90) mil/mm3 Hgb 14.3 (13.0-17.0) gm/dL Hct 40.3 (39.0-51.0) % Plt Count 243 (150-450) th/mm3 Neut # (Auto) 6.6 (1.8-7.7) th/mm3 Lymph # (Auto) 2.1 (1.0-4.8) th/mm3 [place] # (Auto) 0.5 (0.0-0.9) th/mm3 Eos # (Auto) 0.1 (0.0-0.4) th/mm3 Baso # (Auto) 0.1 (0.0-0.2) th/mm3 Comprehensive Metabolic Panel 06/24/18 Range/Units 09:15 Sodium 138 (136-145) meq/L Potassium 3.5 (3.5-5.1) meq/L Chloride 108 H (98-107) meq/L Carbon Dioxide 23.2 (21.0-32.0) meq/L BUN 17 (7-18) mg/dL Creatinine 0.74 (0.60-1.30) mg/dL Calcium 8.8 (8.5-10.1) mg/dL AST 14 L (15-37) U/L ALT 23 (12-78) U/L Alkaline Phosphatase 82 (45-117) U/L Total Protein 7.1 (6.4-8.2) g/dL Albumin 3.8 (3.4-5.0) g/dL Intake and Output 06/24/18 06/25/18 06/25/18 22:59 06:59 14:59 Intake Total 220 / 220 Balance 220 / 220 Intake: Oral 220 / 220 Other: Date of Last Bowel Movement 06/24/18 - Imaging and Cardiology Imaging: Impressions Chest X-Ray 06/24/18 09:10 CONCLUSION: No acute cardiopulmonary process. Suspected chronic change at the right acromioclavicular joint. Thoracic Aorta CT 06/24/18 10:25 CONCLUSION: 1. The arterial structures appear grossly normal. 2. 3 focal liver lesions. The liver lesions at the dome of the liver and the lateral segment the left lobe liver likely represent cysts or hemangiomas. The exophytic mass seen posterior to the liver appears higher in density. This is nonspecific. These could be further evaluated with an MRI examination using a liver protocol at some point. This could be performed as an outpatient. 3. Scattered colonic diverticula without inflammatory change. Assessment and Plan - Assessment (1) Chest pain Code(s): R07.9 - Chest pain, unspecified Status: Acute Plan: Admitted chest pain center. ACS ruled out 3 sets of EKGs and cardiac enzymes. Previously seen and evaluated by midlevel provider, Dr. Sonja Jernigan. Proceed with chemical cardiac testing this morning. If unremarkable, plans are to discharge home with follow-up with the [facility] [place]. (2) Hypertension Code(s): I10 - Essential (primary) hypertension Status: Chronic (3) Hyperlipidemia Code(s): E78.5 - Hyperlipidemia, unspecified Status: Chronic Plan: Cardizem previously continued. Discussed importance of tight blood pressure control including smoking sensation, increase physical activity, weight loss, and adhering to a low-sodium diet. (4) Paroxysmal atrial fibrillation Code(s): I48.0 - Paroxysmal atrial fibrillation Status: Chronic Plan: Telemetry reviewed, no atrial fibrillation identified. Diltiazem continued. (5) Tobacco abuse Code(s): Z72.0 - Tobacco use Status: Chronic Plan: Strongly encouraged and stressed the importance of tobacco cessation. Instructed to quit smoking. Made aware of [employer] program service available to him and made aware contact information will provided in discharge packet. - Plan * Chest pain: Patient will continue to have serial cardiac enzymes and EKGs for ruling out purposes. He will be seen by Dr. Jernigan of cardiology and the chest pain center and at that time further plan will be determined. * Paroxysmal atrial fibrillation: Patient is in sinus rhythm at this time. He was denying palpitations with the symptoms today. He will need further follow- up with his physician. Continue medication. * Hyperlipidemia: Patient states he has been diet controlled. Cannot recall ever being on medication. He will need to have this followed up with his physician at the [facility]. * Tobacco abuse: Patient counseled on importance of smoking cessation. * Hypertension: Continue medication. Patient is stable at this time. He is agreeable to this plan. (2) Hypertension Qualifiers: Hypertension type: unspecified Qualified Code(s): I10 - Essential (primary) hypertension
[2018-06-25] MEDS ORDERED: Aspirin 325 MG Tablet PO SCH (09:00)
[2018-06-25] MEDS ORDERED: Regadenoson Inj 0.4 MG/5 ML Syringe IV.PUSH ONE (09:18)
--- NOTE | 2018-06-25 10:22 | NM ---
EXAM DATE: 06/25/2018 10:16 AM EST AGE/SEX: 58 years / Male INDICATIONS:Angina. Atrial fibrillation Mid chest pain for one day. CLINICAL DATA: This is the patient's initial encounter. Patient reports that signs and symptoms have been present for 1 day and indicates a pain score of 10/10. MEDICAL/SURGICAL HISTORY: Hypertension. . COMPARISON: No prior exams available for comparison. No external comparison. DOSE: 11.0 mCi Tc 99m Myoview at rest 35.0 mCi [id number] at stress 0.4 mg Lexiscan STRESS SYMPTOMS: Flush. EJECTION FRACTION: 39 % TECHNIQUE: The patient underwent pharmacologic stress with infusion of prescribed dose. Continuous ECG tracing was monitored during stress. Gated SPECT imaging was performed after stress and conventi onal SPECT imaging was performed at rest. The examination was performed on a SPECT/CT scanner, both attenuation and non-corrected datasets were reviewed. FINDINGS: Distribution: The maximum perfused segment at stress is in the inferior lateral wall. Perfusion Study: There is heterogeneous perfusion of the left ventricle stress images but no focal fixed or reversible perfusion defect is identified. Gated Study: There is global hypokinesia without any dyskinetic segments. The ejection fraction is calculated at 39%. RISK CATEGORY: Intermediate (1-3 % Annual Mortality Rate) CONCLUSION: 1. No fixed or reversible perfusion defect is identified. 2. Global hypokinesia with reduced left ventricular ejection fraction calculated at 39%. Electronically signed by: Swapnil Thayer MD 06/25/2018 10:21 AM EST
--- NOTE | 2018-06-25 15:55 | ECG ---
Date Performed: 06/24/2018 Time Performed: 17:02:37 PTAGE: 58 years EKG: SINUS BRADYCARDIA MODERATE INTRAVENTRICULAR CONDUCTION DELAY BORDERLINE ECG PREVIOUS TRACING : 06/24/2018 13.40 Since previous tracing, no significant change noted DOCTOR: Eleazar Reid Interpretating Date/Time 06/25/2018 15:53:53
--- NOTE | 2018-06-25 15:56 | ECG ---
Date Performed: 06/24/2018 Time Performed: 13:40:43 PTAGE: 58 years EKG: SINUS BRADYCARDIA MODERATE INTRAVENTRICULAR CONDUCTION DELAY BORDERLINE ECG PREVIOUS TRACING : 06/24/2018 09.10 Since previous tracing, no significant change noted DOCTOR: Eleazar Reid Interpretating Date/Time 06/25/2018 15:54:03
--- NOTE | 2018-06-25 15:57 | TR ---
Date Performed: 06/25/2018 Time Performed: 09:12:43 DOCTOR: Eleazar Reid DRUG LIST: CLINICAL HISTORY: REASON FOR TEST: REASON FOR ENDING: OBSERVATION: CONCLUSION: COMMENTS: Lexiscan stress test was performed under standard four minute protocol. Radionuclide was injected one minute prior to ending the test. No electrocardiographic abormalities were present t o suggest ischemia. Nuclear imaging and interpretation are pending.
== END 2018-06-25 12:22 | disposition home or self-care (01) ==
LOC: NEDA 08:58 → NEPE 08:58 → NEPFCDU 14:07
PROVIDERS: ADMIT Internal Medicine Interventional Cardiology; ATTEND Internal Medicine Interventional Cardiology
DX: Z68.32 Body mass index [BMI] 32.0-32.9, adult; I10 Essential (primary) hypertension; Z72.0 Tobacco use; R07.9 Chest pain, unspecified; Z82.49 Family history of ischemic heart disease and other diseases of the circulatory system; K76.9 Liver disease, unspecified; E78.5 Hyperlipidemia, unspecified; K57.30 Diverticulosis of large intestine without perforation or abscess without bleeding; I48.0 Paroxysmal atrial fibrillation; E66.9 Obesity, unspecified; G89.29 Other chronic pain; M54.9 Dorsalgia, unspecified